=== PATIENT | female | born 2000 | race Caucasian/White ===

== ENCOUNTER 2022-09-13 07:01 | Day surgery (SDC) | payer BC, MEDICAID ==
[2022-09-09 10:10] LABS: BASOPHILS # (AUTO) 0.1 X10'3 (0-0.2); BASOPHILS % (AUTO) 1.4 % (0-1); EOSINOPHILS % (AUTO) 0.8 % (0-6); LYMPHOCYTES # (AUTO) 1.6 X10'3 (1.1-4.8); LYMPHOCYTES % (AUTO) 45.5 % (21-51); MEAN CORPUSCULAR HEMOGLOBIN 28.5 PG (27.0-31.0); MEAN CORPUSCULAR HGB CONC 32.7 g/dL (33.0-36.5); MEAN CORPUSCULAR VOLUME 87.3 FL (78-98); MEAN PLATELET VOLUME 7.9 FL (7.4-10.4); MONOCYTES # (AUTO) 0.7 X10'3 (0-0.9); MONOCYTES % (AUTO) 19.1 % (2-12); NEUTROPHILS # (AUTO) 1.2 X10'3 (1.8-7.7); NEUTROPHILS % (AUTO) 33.2 % (42-75); PRE OP HEMATOCRIT 38.3 % (35.0-45.0); PRE OP HEMOGLOBIN 12.5 g/dL (12.0-16.0); PRE OP PLATELET COUNT 273 X10'3 (140-440); RED BLOOD COUNT 4.39 X10'6 (4.20-5.60); RED CELL DISTRIBUTION WIDTH 17.4 % (11.5-14.5)
[2022-09-09 10:24] LABS: HCG SERUM QL NEGATIVE
[2022-09-09 11:27] LABS: ANISOCYTOSIS 1+; PLATELET ESTIMATE NORMAL; TOTAL CELLS COUNTED 100
[2022-09-09 11:35] LABS: ALBUMIN 3.9 G/DL (3.4-5.0); ALBUMIN/GLOBULIN RATIO 1.2 (1.1-1.5); ALKALINE PHOSPHATASE 74 IU/L (46-116); BLOOD UREA NITROGEN 13 MG/DL (7-18); BUN/CREATININE RATIO 13.5 (10.0-20.0); CALCIUM 8.9 MG/DL (8.5-10.1); CHLORIDE 102 MMOL/L (99-107); CREATININE 0.96 MG/DL (0.40-0.90); PRE OP ALT 32 U/L (30-65); PRE OP ANION GAP 9 (8-16); PRE OP AST 23 U/L (10-37); PRE OP BILIRUB, TOTAL 0.3 MG/DL (0.0-1.0); PRE OP GLUCOSE 82 MG/DL (70-104); PRE OP POTASSIUM 4.7 MMOL/L (3.4-5.1); PRE OP SODIUM 138 MMOL/L (135-145); TOTAL CARBON DIOXIDE 26.8 MMOL/L (24-32); TOTAL PROTEIN 7.1 G/DL (6.4-8.2); eGFR 71 ML/MIN
[2022-09-13] VITALS (11 sets, daily range): BP systolic 109–127; BP diastolic 64–82
[~2022-09-13] VITALS: Ht 157.5 cm; Wt 77.1 kg
[~2022-09-13 07:01] MED LIST: BUPR450T3 PO; ESCI20TA39 PO; cefazolin 2gm/D5W 100mL 100 ML IV ONE; famotidine 20mg tablet PO ONE; ringers solution, lacted 1,000 ML IV SCH
[2022-09-13] MEDS ORDERED: morphine 4 MG/ML inj SYRINge IV PRN (08:05)
[2022-09-13] MEDS ORDERED: proCHLORperazine 10 MG/2 ml inj IV PRN (08:05)
[2022-09-13] MEDS ORDERED: ringers solution, lacted 1,000 ML IV SCH (08:05)
[2022-09-13] MEDS ORDERED: ondansetron/PF 4mg/2ml inj IV PRN (08:05)
[2022-09-13] MEDS ORDERED: meperidine/PF 25mg/ml syringe IV PRN ×3 (08:05)
[2022-09-13] MEDS ORDERED: morphine 2 MG/ML inj. syringe IV PRN (08:05)
[2022-09-13] MEDS ORDERED: propofol inj 20 ML IV ONE (08:16)
[2022-09-13] MEDS ORDERED: midazolam 1 mg/ML 2ml injection ONE (08:16)
[2022-09-13] MEDS ORDERED: LIDOcaine 1%/PF 5ML 10 MG/ML VIAL ONE (08:16)
[2022-09-13] MEDS ORDERED: fentaNYL/PF 50MCG/1 ML 2ML syringe ONE (08:16)
[2022-09-13] MEDS ORDERED: BUPIVAcaine/PF 2.5 mg/ml (0.25%) 30ml vial ONE (08:42)
[2022-09-13] MEDS ORDERED: ondansetron/PF 4mg/2ml inj ONE (08:45)
[2022-09-13] MEDS ORDERED: sevoflurane 250ml liquid IH ONE (08:45)
[2022-09-13] MEDS ORDERED: dexamethasone sod phosphate 10mg/ml inj ONE (08:45)
[2022-09-13] MEDS ORDERED: acetaminophen 1,000mg/100ml IV 100 ML IV ONE (09:04)
[2022-09-13] MEDS ORDERED: meperidine/PF 25mg/ml syringe ONE (09:08)
--- NOTE | 2022-09-13 09:58 | NUR ---
Received from OR via [facility] , accompanied by Anesthesiologist and YARN CONDITIONER report given by YARN CONDITIONER AND Anesthesiolgist. Addendum: 09/13/22 at 1106 by Lucia Quintanilla RN Amended: Links added.
--- NOTE | 2022-09-13 11:48 | NUR ---
DC HOME: ALL DISCHARGE CRITERIA HAS BEEN MET. VSS, PAIN AT A TOLERABLE LEVEL, VOIDING AND ABLE TO SAFELY AMBULATE AND TRANSFER SELF. IV TAKEN OUT WITHOUT ANY COMPLICATIONS. ALL DISCHARGE INSTRUCTIONS COVERED WITH PATIENT AND ALL QUESTIONS ANSWERED. PATIENT TAKEN OUT VIA WHEELCHAIR TO PERSONAL VEHICLE WHERE FAMILY/FRIEND DROVE PATIENT HOME. Addendum: 09/13/22 at 1236 by Lucia Quintanilla RN Amended: Links added.
== END 2022-09-13 11:48 | disposition home or self-care (01) ==
LOC: PRE-OP 07:01
PROVIDERS: ATTEND Surgery
DX: R92.8 Other abnormal and inconclusive findings on diagnostic imaging of breast (principal); D24.1 Benign neoplasm of right breast; N60.11 Diffuse cystic mastopathy of right breast; F32.A Depression, unspecified; F41.9 Anxiety disorder, unspecified; E66.9 Obesity, unspecified; Z68.31 Body mass index [BMI] 31.0-31.9, adult; Z98.890 Other specified postprocedural states; Z79.899 Other long term (current) drug therapy
CPT/HCPCS: 19301; 36415; 80053; 82948; 84703; 85025; J0131; J0690; J1100; J2175; J2250; J2405; J2704; J3010; J3490; J7030; J7120; Z7506; Z7508; Z7512; 85007; A4215; A4618; A6449; A7000

== ENCOUNTER 2025-02-14 15:11 | Outpatient (CLI) | payer MEDICAID ==
[~2025-02-14 15:11] MED LIST changes: -BUPR450T3 PO; +BUPR450T5 PO; -cefazolin 2gm/D5W 100mL 100 ML IV ONE; -famotidine 20mg tablet PO ONE; -ringers solution, lacted 1,000 ML IV SCH
--- NOTE | 2025-02-14 16:17 | RADIOLOGY REPORT ---
MR MRI LUMBAR SPINE INDICATION: LOW BACK PAIN, UNSPECIFIED EXAM DATE: 02/14/2025 03:19 PM COMPARISON: None PROCEDURE: Using a 1.5 Diane scanner, multisequence multiplanar imaging of the lumbar spine was obtained. FINDINGS: There are five lumbar vertebral segments. The lumbar spine shows anatomic alignment with preservation of vertebral body heights. The marrow signal is heterogeneous. The intervertebral discs appear decreased in height and signal. Discogenic endplate changes are noted at L5-S1. The distal spinal cord is normal in signal and morphology and the conus medullaris terminates at L1. The paraspinal soft tissues are normal. On axial images: At L1-2, the posterior disc margin, thecal sac, neural foramina, and facet joints appear normal. At L2-3, the posterior disc margin, thecal sac, neural foramina, and facet joints appear normal. At L3-4, the posterior disc margin, thecal sac, neural foramina, and facet joints appear normal. At L4-5, there is a broad based disc bulge with small annular tear, thecal sac is narrowed to 7 mm, neural foramina, and facet joints appear normal. There is ligamentum flavum thickening. At L5-S1, there is posterior disc bulge, thecal sac, severe right and moderate left neural foramina narrowing, and facet joints appear normal. IMPRESSION: Multilevel degenerative changes of the lumbar spine with mild central canal narrowing at L4-5 due to disc disease with a small annular tear. L5-S1 severe right and moderate left neural foramina narrowing.
== END 2025-02-14 23:59 | disposition home or self-care (01) ==
LOC: MRI02 15:11
PROVIDERS: ATTEND Family Medicine
DX: M51.17 Intervertebral disc disorders with radiculopathy, lumbosacral region (principal); M54.50 Low back pain, unspecified; M48.07 Spinal stenosis, lumbosacral region
CPT/HCPCS: 72148